=== PATIENT | female | born 1965 | race Two or more races ===

== ENCOUNTER 2017-10-05 10:18 | Emergency (ER) | payer MEDICAID ==
[~2017-10-05] VITALS: Ht 165.1 cm; Wt 74.8 kg
[2017-10-05] MEDS ORDERED: BENAZEPRIL HCL10 MG ORAL (10:33)
[2017-10-05] MEDS ORDERED: PPI (10:33)
[2017-10-05 10:46] VITALS: BP 114/61
[2017-10-05 11:09] LABS: APPEARANCE,URINE CLOUDY; BILIRUBIN, URINE NEGATIVE (NEGATIVE); COLOR,URINE PALE YELLOW; GLUCOSE, URINE (UA) NEGATIVE (NEGATIVE); KETONES,URINE NEGATIVE (NEGATIVE); LEUKOCYTE ESTERASE ,URINE 3+ (NEGATIVE); NITRITE,URINE NEGATIVE (NEGATIVE); PH,URINE 6 (4.5-8.0); PROTEIN,URINE 3+ (NEGATIVE); UROBILINOGEN,URINE NORMAL MG/DL (0.0-1.0)
--- NOTE | 2017-10-05 12:14 | Emergency Room Report ---
History of Present Illness General Chief Complaint: Female Urogenital Problems Source: Patient Present Illness HPI The patient states she has had dysuria for the past 5 days. She noted a little bit of burning starting 5 days ago and now it is more persistent. She also had a little bit hematuria. She denies fever or chills. She denies nausea or vomiting. She denies back pain. She denies abdominal pain. She has no other complaints. Allergies: Coded Allergies: No Known Allergies (Unverified , 10/05/17) Patient History Past Medical History: HTN, renal disease - One kidney (stable function). Social History: Denies: smoking, alcohol use, drug use Reviewed Nursing Documentation: PMH: Agreed; PSxH: Agreed Nursing Documentation-PMH Hx Hypertension: Yes Hx Gastrointestinal Problems: Yes Review of Systems All Other Systems: negative except mentioned in HPI Physical Exam Vital Signs Date Time Temp Pulse Resp B/P (MAP) Pulse Ox O2 Delivery O2 Flow Rate FiO2 10/05/17 10:23 98.0 78 18 114/61 94 Room Air 98.1 Sp02 EP Interpretation: reviewed, normal General Appearance: no apparent distress, alert, GCS 15, non-toxic Head: normocephalic, atraumatic Eyes: bilateral eye normal inspection, bilateral eye PERRL ENT: hearing grossly normal, normal pharynx, no angioedema, normal voice Neck: full range of motion, supple/symm/no masses Respiratory: chest non-tender, lungs clear, normal breath sounds, speaking full sentences Cardiovascular #1: regular rate, rhythm, no edema Gastrointestinal: normal bowel sounds, non tender, soft, non-distended, no guarding, no rebound Rectal: deferred Musculoskeletal: back normal, gait/station normal, normal range of motion, non- tender Neurologic: alert, oriented x3, responsive, motor strength/tone normal, sensory intact, speech normal Psychiatric: judgement/insight normal, memory normal, mood/affect normal, no suicidal/homicidal ideation Skin: normal color, no rash, warm/dry, well hydrated Medical Decision Making Diagnostic Impression: Primary Impression: UTI (urinary tract infection) ER Course Patient has a clinical presentation consistent with simple UTI. There are no systemic symptoms to include fever, chills, sweating, nausea or vomiting that would make me concerned for pyelonephritis. Overall this patient's evaluation is benign. Patient is stable for outpatient oral antibiotic therapy. The patient was given return precautions and followup instructions. Laboratory Tests Test 10/05/17 10:30 Urine Color Pale yellow Urine Appearance Cloudy Urine pH 6 (4.5-8.0) Urine Specific [place] 1.020 (1.005-1.035) Urine Protein 3+ (NEGATIVE) H Urine Glucose (UA) Negative (NEGATIVE) Urine Ketones Negative (NEGATIVE) Urine Occult Blood 5+ (NEGATIVE) H Urine Nitrite Negative (NEGATIVE) Urine Bilirubin Negative (NEGATIVE) Urine Urobilinogen Normal MG/DL (0.0-1.0) Urine Leukocyte Esterase 3+ (NEGATIVE) H Urine RBC 15-20 /HPF (0 - 2) H Urine WBC Tntc /HPF (0 - 2) H Urine Squamous Epithelial Cells Moderate /LPF (NONE/OCC) H Urine Bacteria Moderate /HPF (NONE) H Last Vital Signs Date Time Temp Pulse Resp B/P (MAP) Pulse Ox O2 Delivery O2 Flow Rate FiO2 10/05/17 10:46 98.1 18 114/61 94 Room Air 98.1 10/05/17 10:23 78 Disposition: HOME, SELF-CARE Condition: Improved Scripts Nitrofurantoin Monohyd/M-Cryst* (MACROBID 100 MG*) 100 Mg Capsule 100 MG ORAL EVERY 12 HOURS, #20 CAP Prov: OSIEL GARCIA D.O. 10/05/17 Referrals: [facility],REFERRING (PCP) Patient Instructions: Urinary Tract Infection OSIEL GARCIA D.O. October 05, 2017 12:14
[2017-10-05] MEDS ORDERED: NITROFURANTOIN100 M2 ORAL (12:22)
[2017-10-05 12:34] VITALS: BP 114/61
== END 2017-10-05 12:35 | disposition home or self-care (01) ==
LOC: EMR 10:45
DX: N39.0 Urinary tract infection, site not specified (principal); I10 Essential (primary) hypertension
CPT/HCPCS: 81003; 87086; 87181; 99283

== ENCOUNTER 2018-01-28 09:31 | Outpatient (CLI) | payer MEDICAID ==
[~2018-01-28] VITALS: Ht 165.1 cm; Wt 74.4 kg
[~2018-01-28 09:31] MED LIST: BENAZEPRIL HCL10 MG ORAL; NITROFURANTOIN100 M2 ORAL; PPI
--- NOTE | 2018-01-28 10:28 | GI Initial Consult Note ---
History of Present Illness General Date patient seen: Jan 28, 2018 Time patient seen: 10:24 Referring physician: O Reason for Consultation: ABDOMINAL BLOATING Present Illness HPI 53 year old female patient, history of colitis for 2 years presents today with complaint of abdominal bloating. Her last endoscopy/colonoscopy performed in 2017. No other associated GI symptoms. Denies any unintentional weight loss or changes in dietary habits. No signs of abuse or neglect. Patient is not fall risk. Home Meds Active Scripts Nitrofurantoin Monohyd/M-Cryst* (MACROBID 100 MG*) 100 Mg Capsule, 100 MG ORAL EVERY 12 HOURS, #20 CAP Prov:Marisel Sparks DO 10/05/17 Reported Medications [Ppi] No Conflict Check 10/05/17 Benazepril Hcl* (BENAZEPRIL HCL*) 10 Mg Tablet, ORAL DAILY, TAB 10/05/17 Med list reviewed/reconciled: Yes Allergies: Coded Allergies: No Known Allergies (Unverified , 10/05/17) Patient History History Provided By: Patient, Medical Record PMH Narrative GERD HTN diverticulitis hemorrhoids Right, one kidney only colitis Past Surgical History: None Family History Narrative Mother >> HTN, Gastric CA Social History: Denies: smoking, alcohol use, drug use, other Review of Systems All Other Systems: negative except mentioned in HPI Physical Exam T 98.3 BP 116/58 P 76 95 RA HT 5'5 WT 164 lbs Sp02 EP Interpretation: reviewed, normal General Appearance: well appearing, no apparent distress, alert Head: normocephalic EENT: PERRL/EOMI, normal ENT inspection Neck: supple Respiratory: normal breath sounds, no respiratory distress Cardiovascular: normal rate Gastrointestinal: normal inspection, non tender, soft, normal bowel sounds, non -distended Rectal: deferred Genitourinary: no CVA tenderness Musculoskeletal: normal inspection, back normal Neurologic: normal inspection, alert, oriented x3, responsive Psychiatric: normal inspection, judgement/insight normal, memory normal Skin: normal inspection, normal color, no rash, warm/dry, palpation normal, well hydrated Lymphatic: normal inspection, no adenopathy GI: Plan Problems: (1) GERD (gastroesophageal reflux disease) (2) HTN (hypertension) (3) Diverticulitis (4) Hemorrhoid (5) Colitis (6) Bloating symptom Plan d/c delzicol RTC x 6 months repeat colonoscopy x [address] Brooks. Thank you for this patient referral. The patient was seen and examined at bedside and all new and available data was reviewed in the patients chart. I agree with the above findings, impression and plan. (Patient seen earlier today. Signature stamp does not reflect patient encounter time.). - MD Maya Ovalle AnhJersey MEJIA Jan 28, 2018 10:28
[2018-01-28 10:41] VITALS: BP 116/58
[2018-01-28] MEDS ORDERED: BISOPROLOL FUMAR5 MG PO (10:45)
== END 2018-01-28 10:01 | disposition home or self-care (01) ==
LOC: PAN 09:31
DX: R14.0 Abdominal distension (gaseous) (principal); K21.9 Gastro-esophageal reflux disease without esophagitis; I10 Essential (primary) hypertension; K57.92 Diverticulitis of intestine, part unspecified, without perforation or abscess without bleeding; K64.9 Unspecified hemorrhoids; K52.9 Noninfective gastroenteritis and colitis, unspecified; Z90.5 Acquired absence of kidney
CPT/HCPCS: 99201

== ENCOUNTER 2018-09-16 09:09 | Outpatient (CLI) | payer MEDICAID ==
[~2018-09-16 09:09] MED LIST changes: +BISOPROLOL FUMAR5 MG PO
--- NOTE | 2018-09-16 09:40 | General Progress Note ---
Assessment/Plan Problem List: (1) Hemorrhoid ICD Codes: K64.9 - Unspecified hemorrhoids SNOMED: 05299855 (2) GERD (gastroesophageal reflux disease) ICD Codes: K21.9 - Gastro-esophageal reflux disease without esophagitis SNOMED: 652522944 (3) HTN (hypertension) ICD Codes: I10 - Essential (primary) hypertension SNOMED: 38247500 (4) Bloating symptom ICD Codes: R14.0 - Abdominal distension (gaseous) SNOMED: 773579102 Plan: plan colonoscopy in 3 years add Align Subjective ROS Limited/Unobtainable: Yes Allergies: Coded Allergies: No Known Allergies (Unverified , 10/05/17) Objective General Appearance: alert EENT: normal ENT inspection Neck: supple Cardiovascular: normal rate Respiratory/Chest: lungs clear Abdomen: normal bowel sounds, non tender, soft Extremities: non-tender Hema Brokos MD Sep 16, 2018 09:40
[2018-09-16 10:06] VITALS: BP 111/64
[2018-09-16] MEDS ORDERED: ATORVASTATIN CA20 MG ORAL (10:06)
== END 2018-09-16 15:11 | disposition home or self-care (01) ==
LOC: PAN 09:09
DX: K64.9 Unspecified hemorrhoids (principal); K21.9 Gastro-esophageal reflux disease without esophagitis; I10 Essential (primary) hypertension; R14.0 Abdominal distension (gaseous)
CPT/HCPCS: 99202

== ENCOUNTER 2018-12-01 10:10 | Emergency (ER) | payer MEDICAID ==
[~2018-12-01] VITALS: Ht 165.1 cm; Wt 72.6 kg
[~2018-12-01 10:10] MED LIST changes: +ATORVASTATIN CA20 MG ORAL
[2018-12-01] MEDS ORDERED: BENAZEPRIL HCL20 MG ORAL (10:20)
[2018-12-01] MEDS ORDERED: BISOPROLOL FUMAR5 MG PO (10:20)
[2018-12-01] MEDS ORDERED: ASPIRIN81 MG ORAL (10:20)
--- NOTE | 2018-12-01 10:26 | NUR ---
ED Nurse Note: pt walked in due to sore throat started yesterday, pt denies cold congestion and cough. pt stated she gargled with listerin yesterday with no effect. pt not in distress. will continue to monitor.
[2018-12-01 10:27] VITALS: BP 123/73
[2018-12-01] MEDS ORDERED: AMOXICILLIN500 MG ORAL (10:42)
[2018-12-01 10:45] VITALS: BP 123/73
--- NOTE | 2018-12-01 10:45 | NUR ---
ER DISCHARGE NOTE: Patient is cleared to be discharged per ERMD, pt is aox4, on room air, with stable vital signs. pt was given dc and prescription instructions, pt was able to verbalize understanding, pt id band removed without complications. pt is able to ambulate with steady gait. pt took all belongings.
--- NOTE | 2018-12-01 11:11 | Emergency Room Report ---
History of Present Illness General Chief Complaint: Sore Throat Source: Patient Present Illness HPI 53-year-old female presents ED for evaluation. Patient complaining of sore throat since yesterday. States she saw white stuff in the mirror when she looked. Pain is throbbing, 8 out of 10, nonradiating. Denies cough. Denies fevers or chills. Denies sick contacts or recent travel. No other aggravating relieving factors. Denies any other associated symptoms Allergies: Coded Allergies: No Known Allergies (Unverified , 12/01/18) Patient History Past Medical History: HTN Pertinent Family History: none Social History: Denies: smoking, alcohol use, drug use Now: No Immunizations: UTD Reviewed Nursing Documentation: PMH: Agreed; PSxH: Agreed Nursing Documentation-PMH Past Medical History: No History, Except For Hx Cardiac Problems: Yes - high cholesterol Hx Hypertension: Yes Review of Systems All Other Systems: negative except mentioned in HPI Physical Exam Vital Signs Date Time Temp Pulse Resp B/P (MAP) Pulse Ox O2 Delivery O2 Flow Rate FiO2 12/01/18 10:14 98.8 98 17 123/73 (90) 99 Room Air Sp02 EP Interpretation: reviewed, normal General Appearance: no apparent distress, alert, GCS 15, non-toxic Head: normocephalic Eyes: bilateral eye normal inspection, bilateral eye PERRL ENT: TMs + canals normal, uvula midline, pharyngeal erythema, tonsillar exudate Neck: normal inspection Respiratory: normal inspection Cardiovascular #1: normal inspection Gastrointestinal: normal inspection Rectal: deferred Genitourinary: no CVA tenderness Musculoskeletal: normal inspection Neurologic: alert, oriented x3, responsive, motor strength/tone normal, sensory intact, speech normal Psychiatric: normal inspection Skin: normal color Lymphatic: adenopathy Medical Decision Making Diagnostic Impression: Primary Impression: Pharyngitis Qualified Codes: J02.9 - Acute pharyngitis, unspecified ER Course Hospital Course 53-year-old female presents to ED complaining of sore throat Differential diagnoses include: URI, pharyngitis, otitis media Clinical course Patient placed on stretcher. After initial history, physical exam reveals a young male in no acute distress. Bilateral TM unremarkable. There is pharyngeal erythema w/ tonsillar exudates. Noted lymphadenopathy. Clinical findings consistent with pharyngitis. discussed findings with patient. Will discharge to home with antibiotics. States she has a PMD but his office was closed today. Diagnosis - pharyngitis Stable and discharged home with prescriptions for amoxicillin. Instructed to followup with PMD. return to ED if symptoms recur or worsen Last Vital Signs Date Time Temp Pulse Resp B/P (MAP) Pulse Ox O2 Delivery O2 Flow Rate FiO2 12/01/18 10:45 98.8 98 17 123/73 99 Room Air Status: improved Disposition: HOME, SELF-CARE Condition: Stable Scripts Amoxicillin* (AMOXIL*) 500 Mg Capsule 500 MG ORAL THREE TIMES A DAY, #21 CAP Prov: Francisco Omalley MD 12/01/18 Referrals: NON PHYSICIAN (PCP) Patient Instructions: Pharyngitis, [id number] Francisco Omalley MD Dec 01, 2018 11:11
== END 2018-12-01 10:45 | disposition home or self-care (01) ==
LOC: MERGE 10:40 → EMR 10:40
DX: J02.9 Acute pharyngitis, unspecified (principal); I10 Essential (primary) hypertension; E78.00 Pure hypercholesterolemia, unspecified
CPT/HCPCS: 99282